=== PATIENT | male | born 1965 | race Asian ===

== ENCOUNTER 2018-06-22 09:00 | Outpatient (RCR) | payer SELFPAY | END 2018-06-25 | disposition home or self-care (01) | LOC: PTY 09:00 | DX: S93.401D Sprain of unspecified ligament of right ankle, subsequent encounter (principal); M25.371 Other instability, right ankle; M76.70 Peroneal tendinitis, unspecified leg; M67.00 Short Achilles tendon (acquired), unspecified ankle ==